=== PATIENT | female | born 1995 | race Caucasian/White ===

== ENCOUNTER 2018-12-25 00:07 | Outpatient (CLI) | payer OTHER ==
[2018-12-25] MEDS ORDERED: PRENATAL CAPLE1 EAC1 PO (00:17)
== END 2018-12-25 12:57 | disposition home or self-care (01) ==
LOC: OBS/DEL 00:07
DX: O47.1 False labor at or after 37 completed weeks of gestation (principal); Z34.83 Encounter for supervision of other normal pregnancy, third trimester

== ENCOUNTER 2018-12-30 06:12 | Inpatient (IN) | payer OTHER ==
[~2018-12-30] VITALS: Ht 167.6 cm; Wt 77.6 kg
[~2018-12-30 06:12] MED LIST: PRENATAL CAPLE1 EAC1 PO
== END 2019-01-01 12:49 | disposition federal hospital, planned readmission (88) | DRG 807 ==
LOC: LDR 06:12 → OB/GYN 06:12
PROVIDERS: ADMIT Obstetrics & Gynecology
PROC: 10E0XZZ Delivery of Products of Conception, External Approach (ICD-10-PCS; principal; 2018-12-30)
PROC: 4A0HXFZ Measurement of Products of Conception, Cardiac Rhythm, External Approach (ICD-10-PCS; 2018-12-30)
DX: O80 Encounter for full-term uncomplicated delivery (principal); Z37.0 Single live birth; Z3A.39 39 weeks gestation of pregnancy